=== PATIENT | female | born 1935 | race Two or more races ===

== ENCOUNTER 2020-07-21 05:03 | Emergency (ER) | payer MEDICARE ==
[~2020-07-21] VITALS: Ht 167.6 cm; Wt 76.3 kg
[~2020-07-21 05:03] MED LIST: ELIQUIS5 MG PO; FERROUS SULFAT325 MG PO; GABAPENTIN300 MG PO; ONDANSETRON ODT8 MG PO; SPIRONOLACTONE25 MG PO; TENORMIN 25MG T25 MG; Z.0.GLUCOPHAGE500 MG; Z.0.JANUVIA100 MG; Z.0.METHIMAZOLE10 MG PO; Z.0.NATEGLINIDE120 M
[2020-07-21] MEDS ORDERED: CEFTRIAXONE SOD 1 GM/NS 50 ML 50 ML IV ONE ×2 (06:30→06:38)
[2020-07-21] MEDS ORDERED: METOPROLOL TARTRATE INJ 1 MG/ML VIAL IV ONE (06:30)
[2020-07-21] MEDS ORDERED: METOPROLOL TARTRATE INJ 1 MG/ML VIAL ONE (06:38)
[2020-07-21] MEDS ORDERED: FUROSEMIDE INJ 10 MG/ML 4 ML VIAL IV ONE (06:45)
[2020-07-21] MEDS ORDERED: CEFDINIR300 MG PO (06:50)
[2020-07-21] MEDS ORDERED: FUROSEMIDE INJ 10 MG/ML 4 ML VIAL ONE (06:58)
== END 2020-07-21 07:24 | disposition home or self-care (01) ==
LOC: MERGE 05:38 → FSED 05:38
DX: I48.20 Chronic atrial fibrillation, unspecified (principal); I50.9 Heart failure, unspecified; N39.0 Urinary tract infection, site not specified; E11.65 Type 2 diabetes mellitus with hyperglycemia; I10 Essential (primary) hypertension; R94.31 Abnormal electrocardiogram [ECG] [EKG]
CPT/HCPCS: 71046; 80053; 81003; 82553; 83880; 84484; 85025; 87086; 93005; 99284; J0696; J1940